=== PATIENT | male | born 1945 | race Caucasian/White ===

== ENCOUNTER 2017-12-15 12:23 | Day surgery (SDC) | payer MEDICARE, OTHER ==
[2017-12-14 10:43] VITALS: BMI 22.0
[2017-12-15] MEDS ORDERED: Lidocaine 1% PF 5 ML VIAL ONE (13:06)
[2017-12-15] MEDS ORDERED: PROPOFOL 200 MG/20 ML VIAL ONE (13:06)
[2017-12-15] MEDS ORDERED: Midazolam HCl 2 mg/2 ml Vial ONE (14:11)
--- NOTE | 2017-12-15 15:12 | OP ---
PREOPERATIVE DIAGNOSES: 1. Change in bowel function. 2. History of colon polyps. 3. Family history of colon cancer. DESCRIPTION OF PROCEDURE: After informed consent was obtained, the patient placed in the left latera l decubitus position. Anesthesia was administered per the Anesthesia Department. Forward-viewing en doscope was inserted into the rectum after perianal inspection and rectal exam were normal. This pas sed to the cecum with ease. The cecum, ileocecal valve, and appendiceal orifice were normal. The pr ep was excellent. The terminal ileum was normal. Random biopsies were taken from both the right and left colon to rule out microscopic colitis. A small polyp was noted in the ascending colon and margarito nasir with cold snare polypectomy. A small polyp was noted in the descending colon and removed with co ld snare polypectomy. Rectum was normal. Retroflexion in rectum was normal. ASSESSMENT: 1. Two small colon polyps -- status post cold snare polypectomy. 2. Otherwise, normal ileal colonoscopy. RECOMMENDATIONS: 1. Await histopathology. 2. Repeat colonoscopy based on histopathology. 3. Continue daily Citrucel. 4. Follow up in office in one month's time.
== END 2017-12-15 15:55 | disposition home or self-care (01) ==
LOC: SDC 12:23
PROVIDERS: ATTEND Internal Medicine Gastroenterology
PROC: 0DBK8ZX Excision of Ascending Colon, Via Natural or Artificial Opening Endoscopic, Diagnostic (ICD-10-PCS; principal; 2017-12-15)
PROC: 0DBM8ZZ Excision of Descending Colon, Via Natural or Artificial Opening Endoscopic (ICD-10-PCS; 2017-12-15)
DX: K63.5 Polyp of colon (principal); Z80.0 Family history of malignant neoplasm of digestive organs; Z88.0 Allergy status to penicillin; Z79.82 Long term (current) use of aspirin; Z79.899 Other long term (current) drug therapy
CPT/HCPCS: 88305; J2001; J2250; J2704

== ENCOUNTER 2019-02-02 19:39 | Observation (INO) | payer MEDICARE, OTHER ==
[2019-02-02] MEDS ORDERED: Ondansetron ODT 4 MG TAB SL PRN (21:40)
[2019-02-02] MEDS ORDERED: Ondansetron PF 4 MG/2 ML Vial IVP PRN (21:40)
[2019-02-02] MEDS ORDERED: Acetaminophen 325 MG TAB PO PRN (21:40)
[2019-02-02 21:41] VITALS: BMI 23.1
[2019-02-02] MEDS ORDERED: Atorvastatin Calcium 20 MG TAB PO SCH (23:15)
[2019-02-02] MEDS ORDERED: Tamsulosin HCl 0.4 MG CAP PO SCH (23:15)
[2019-02-02] MEDS ORDERED: Carvedilol 25 MG TAB PO SCH (23:15)
[2019-02-02 23:37] LABS: Troponin I 0.042 ng/mL (< 0.028)
[2019-02-03 03:28] LABS: Troponin I 0.026 ng/mL (< 0.028)
[2019-02-03 08:18] LABS: #Basophils 0.1 thou/uL (0.0-0.2); #Eosinphils 0.2 thou/uL (0.0-0.7); #Lymphocytes 2.2 thou/uL (1.20-3.40); #Monocytes 0.8 thou/uL (0.11-0.59); #Neutrophils 5.4 thou/uL (1.40-6.50); %Basophils 0.9 % (0.0-1.0); %Eosinophils 1.9 % (0.0-10.0); %Lymphocytes 25.7 % (21.0-51.0); %Monocytes 8.9 % (0.0-10.0); %Neutrophils 62.6 % (42.0-75.0); Hemoglobin 14.1 g/dL (14.0-18.0); Mean Corpuscular HGB CONC 32.7 g/dL (32.0-36.0); Mean Corpuscular Hemoglobin 31.3 pg (27.0-31.0); Mean Corpuscular Volume 95.9 fL (78.0-98.0); Mean Platelet Volume 6.8 fL (7.4-10.4); Platelet Count 208 thou/uL (130-400); White Blood Cell (WBC) Count 8.6 thou/uL (4.8-10.8)
[2019-02-03 08:42] LABS: Anion Gap 10 mmol/L (10-20); BUN (Urea Nitrogen) 17 mg/dL (8.4-25.7); Calc. Creatinine Clearance 91 mL/min (70-130); Calcium 9.1 mg/dL (7.8-10.44); Carbon Dioxide 25 mmol/L (23-31); Cardiac Risk 3.6 (Less than 4.5); Chloride 106 mmol/L (98-107); Cholesterol 150 mg/dl (< 200 Desired); Estimated GFR-MDRD 90; Glucose 88 mg/dL (83-110); HDL Cholesterol 42 mg/dL (>60 Neg Risk); LDL Cholesterol, Calculated 86 mg/dL; Magnesium 2.1 mg/dL (1.6-2.6); Potassium 3.9 mmol/L (3.5-5.1); Sodium 137 mmol/L (136-145); Triglycerides 110 mg/dL (Less than 150)
[2019-02-03] MEDS: Spironolactone 25 MG TAB PO SCH (09:43)
[2019-02-03] MEDS: Losartan 25 MG TAB PO SCH (09:44)
[2019-02-03] MEDS: Aspirin Chewable 81 MG TAB PO SCH (09:46)
[2019-02-03] MEDS: Ubidecarenone 50 MG CAP PO SCH (09:46)
[2019-02-03] MEDS: Carvedilol 25 MG TAB PO SCH (09:46)
[2019-02-03] MEDS ORDERED: Ondansetron ODT 4 MG TAB PO PRN (09:51)
[2019-02-03] MEDS ORDERED: Ondansetron PF 4 MG/2 ML Vial IVP PRN (09:51)
[2019-02-03] MEDS ORDERED: Acetaminophen 650 MG Suppository PR PRN (09:51)
[2019-02-03] MEDS ORDERED: Acetaminophen 325 MG TAB PO PRN (09:51)
--- NOTE | 2019-02-03 10:59 | HP ---
CHIEF COMPLAINT: Syncope. HISTORY OF PRESENT ILLNESS: Mr. Perez is a 73-year-old man, who presented to the emergency department at [facility] following a syncopal episode while shopping at [employer]. The patient states he suddenly felt lightheaded and fainted. He came to within seconds and states he injured the right side of his lip on to the stack of plastic baskets. He did end up falling on his back. He apparently underwent CT brain imaging at [facility], that was unremarkable. The patient had laboratory studies done, which were unremarkable. A BNP was normal at 56. An initial troponin was negative. He also underwent of his AICD and noted to have experienced an episode of V-tach. The patient states he just had it checked on and there had been no episodes, and per the patient, he had an additional 5 years remaining longevity. He states he had felt well throughout the day, but was more active than usual. He spent quite a bit of time working on his [employer] system outside around his home and after that went to work out at the gym. The patient states he is usually good about maintaining adequate hydration, but perhaps did not drink more to make up for the increased sweating and activity. He did eat as normal and had a light lunch. The patient had gone home, but prompted by his to go to the emergency department to have his pacemaker checked. On arrival to the emergency department here after being transferred from [facility], he underwent examination, which was unremarkable. He was referred for further workup of syncope. The patient denies having any recent fevers, chills or sweats. Denies having any nausea or vomiting. No abdominal pain or cramping. Denies experiencing any chest pain at any time before the episode or since then. Denies any shortness of breath. Reports having normal bowel movements and no urinary symptoms. No extremity weakness or numbness. No headaches. PAST MEDICAL HISTORY: 1. Cardiomyopathy. 2. Hypertension. 3. Coronary artery disease. 4. CHF. 5. Hyperlipidemia. 6. Osteoarthritis. PAST SURGICAL HISTORY: 1. Right total knee replacement. 2. AICD placement. SOCIAL HISTORY: The patient denies any tobacco use. He rarely drinks alcohol and denies any illicit drug use. ALLERGIES: PENICILLIN. CURRENT MEDICATIONS: 1. Aspirin. 2. Atorvastatin. 3. Carvedilol. 4. Citrucel. 5. Losartan. 6. Multivitamin. 7. Sildenafil. 8. Spironolactone. 9. Tamsulosin. 10. CoQ10. INVESTIGATIONS: As mentioned above in HPI. IMPRESSION AND PLAN: Mr. Perez is a 73-year-old man, who is being referred for management of the following. 1. Syncope. The patient has had his pacemaker defibrillator interrogated, which shows 2 episodes of ventricular tachycardia, unclear of what time. Appears to have had 2 episodes or greater than 176 beats per minute for greater than 4 beats. Consult has been placed to Cardiology. BNP is normal per labs done at [facility]. We will schedule an echo. The patient is scheduled to undergo an outpatient echo with Dr. Rizo in February. We will repeat laboratory studies today and include magnesium as well as TSH. Troponins unremarkable. 2. Hypertension. We will hold antihypertensives given low blood pressure of 94/ 56. The patient states he usually runs in the low 100s. We will continue carvedilol. Monitor blood pressure. We will check orthostatic BPs. 3. Hyperlipidemia. We will resume atorvastatin. 4. Gastrointestinal prophylaxis. 5. Deep venous thrombosis prophylaxis. The patient is ambulatory. On mechanical SCDs. 6. Code status, full. The patient's surrogate decision maker is his , Annie Perez. The patient's case will be discussed with Dr. Garcia for further recommendations. Job ID: [id number] MTDD
[2019-02-03] MEDS ORDERED: ISOVUE-370 76%-LOCM 1 ML ONE (11:53)
--- NOTE | 2019-02-03 11:59 | CT ---
CTA Angio Chest W WO Con 02/03/2019 10:56 AM Indication: Elevated d-dimer and chest pain Technique: Multiple CTA images were obtained of the thorax with IV contrast. 3D reformatted images were constructed from the raw data. Comparison: None Findings: Pulmonary arteries: No central or segmental pulmonary embolus is evident. Heart and Great Vessels: There are scattered vascular calcifications involving thoracic aorta and co ronary arteries. There is a dual lead AICD overlying the left chest wall. Lungs:There are scattered pulmonary nodules throughout both lungs many of which are below 4 mm in siz e. The largest within the right lower lobe measures 4.4 mm. There is subsegmental volume loss within both lower lobes Pleural space: Clear. Upper Abdomen: No acute abnormality. Osseous Structures: No acute osseous abnormality. There is scattered degenerative and osteoarthritic change present. Impression: 1. No central or segmental pulmonary was. 2. Nonspecific small pulmonary nodules within the right and left lung. As a conservative measure a fo llow-up CT examination in 6-8 weeks is recommended to document stability.
--- NOTE | 2019-02-03 18:54 | CON ---
DATE OF CONSULTATION: 02/03/2019 REASON FOR CONSULTATION: Syncope. HISTORY OF PRESENT ILLNESS: Mr. Perez is a very pleasant 73-year-old gentleman with previous history of nonischemic cardiomyopathy. He recently states he had a syncopal episode. He states he has been working in the yard, worked down, and may be a little dehydrated. He has no recollection of the event. No trauma present. PAST MEDICAL HISTORY: Ischemic cardiomyopathy, hypertension, hyperlipidemia, osteoarthritis, knee surgery, AICD placement. ALLERGIES: PENICILLIN. SOCIAL HISTORY: No current tobacco or alcohol use. MEDICATIONS: Include atorvastatin, aspirin, Citracal, losartan, multivitamin, sildenafil, spironolactone, tamsulosin. REVIEW OF SYSTEMS: A 10-point review of systems is reviewed as above, otherwise negative PHYSICAL EXAMINATION: VITAL SIGNS: Blood pressure 101/57, pulse 66, temperature is 97.5. GENERAL: Patient is a pleasant male who is in no acute distress. The patient appears their stated age. NEUROLOGIC: The patient is alert and oriented x3 with no focal neurologic deficits. HEENT: Sclerae without icterus. Mouth has moist mucous membranes with normal pallor. NECK: No JVD. Carotid upstroke brisk. No bruits bilaterally. LUNGS: Clear to auscultation with unlabored respirations. BACK: No scoliosis or kyphosis. CARDIAC: Regular rate and rhythm with normal S1 and S2. No S3 or S4 noted. No significant rubs, murmurs, thrills, or gallops noted throughout the precordium. PMI is not displaced. There is no parasternal heave. ABDOMEN: Soft, nontender, nondistended. No peritoneal signs present. No hepatosplenomegaly. No abnormal striae. EXTREMITIES: 2+ femoral and 2+ dorsalis pedis pulses. No cyanosis, clubbing, or edema. SKIN: No gross abnormalities. Interrogation of ICD-two episodes of SVT with heart rate in the 170s to 180s, longest episode 10 seconds. This occurred during his syncopal episode. PERTINENT LABORATORY DATA: Hemoglobin 14.1, creatinine 0.8. Troponin negative. IMPRESSION: 1. Syncope. 2. Supraventricular tachycardia. 3. Nonischemic cardiomyopathy. RECOMMENDATIONS: I do feel Mr. Perez's symptoms are likely related to episode of SVT in combination with dehydration. At this point, recommend digoxin loading to 1 mg. May consult with EP in a.m. to discuss further treatment options. He is already on high-dose beta alma therapy. This did not appear to be associated with ventricular tachycardia. Job ID: [id number]
[2019-02-03] MEDS: Digoxin 0.25 MG TAB PO SCH (18:55)
[2019-02-03] MEDS ORDERED: Tamsulosin HCl 0.4 MG CAP PO SCH (21:00)
[2019-02-03] MEDS ORDERED: Carvedilol 25 MG TAB PO SCH (21:00)
[2019-02-03] MEDS ORDERED: Atorvastatin Calcium 20 MG TAB PO SCH (21:00)
[2019-02-03] MEDS: Famotidine 20 MG TAB PO SCH (21:08)
[2019-02-04] MEDS: Digoxin 0.25 MG TAB PO SCH ×3 (00:26→13:35)
[2019-02-04 05:37] LABS: Anion Gap 11 mmol/L (10-20); BUN (Urea Nitrogen) 15 mg/dL (8.4-25.7); Calc. Creatinine Clearance 92 mL/min (70-130); Calcium 9.3 mg/dL (7.8-10.44); Carbon Dioxide 26 mmol/L (23-31); Chloride 106 mmol/L (98-107); Estimated GFR-MDRD Greater than 90; Glucose 80 mg/dL (83-110); Potassium 3.8 mmol/L (3.5-5.1); Sodium 139 mmol/L (136-145)
[2019-02-04 06:02] LABS: #Basophils 0.1 thou/uL (0.0-0.2); #Eosinphils 0.2 thou/uL (0.0-0.7); #Lymphocytes 3.2 thou/uL (1.20-3.40); #Monocytes 0.8 thou/uL (0.11-0.59); #Neutrophils 3.7 thou/uL (1.40-6.50); %Eosinophils 2.9 % (0.0-10.0); %Lymphocytes 40.2 % (21.0-51.0); %Monocytes 10.1 % (0.0-10.0); %Neutrophils 45.9 % (42.0-75.0); Elliptocytes SLIGHT = 2-5 cells (100X) (0-1/hpf); Hemoglobin 14.1 g/dL (14.0-18.0); Hypochromia SLIGHT = 6-15 cells (100X) (0-5/hpf); MDiff Complete? YES; Mean Corpuscular HGB CONC 37.7 g/dL (32.0-36.0); Mean Corpuscular Hemoglobin 35.6 pg (27.0-31.0); Mean Corpuscular Volume 94.5 fL (78.0-98.0); Mean Platelet Volume 6.7 fL (7.4-10.4); Platelet Count 208 thou/uL (130-400); Platelet Morphology Comment Appears Adequate; RBC Distribution Width 12.5 % (11.5-14.5); Red Blood Cell (RBC) Count 3.95 mill/uL (4.70-6.10); White Blood Cell (WBC) Count 8.1 thou/uL (4.8-10.8)
[2019-02-04] MEDS: Ubidecarenone 50 MG CAP PO SCH (08:40)
[2019-02-04] MEDS: Famotidine 20 MG TAB PO SCH (08:40)
[2019-02-04] MEDS: Aspirin Chewable 81 MG TAB PO SCH (08:40)
[2019-02-04] MEDS: Carvedilol 25 MG TAB PO SCH (08:41)
[2019-02-04] MEDS: Losartan 25 MG TAB PO SCH (08:43)
[2019-02-04] MEDS: Spironolactone 25 MG TAB PO SCH (08:43)
--- NOTE | 2019-02-04 09:19 | PDOC.PN ---
- Subjective Encounter Start Date: 02/04/19 Encounter Start Time: 09:18 Subjective: Patient feeling well and without complaints. Denies any chest pain. -: No sob. Denies lightheadedness. Tolerating food/liquids. No n/v. - Objective Resuscitation Status - Order Detail: 02/03/19 09:51 Resuscitation Status Routine Co-Sign Provider: Resuscitation Status: FULL: Full Resuscitation Vital Signs & Weight: Vital Signs (12 hours) Temp Pulse Resp BP BP Pulse Ox 02/04/19 07:30 97.5 F L 66 16 105/65 97 02/04/19 07:11 73 02/04/19 04:41 98.0 F 61 15 108/63 97 02/04/19 00:26 97.7 F 63 16 110/70 98 Weight Weight 167 lb 6.4 oz I&O: 02/03/19 02/04/19 02/05/19 06:59 06:59 06:59 Intake Total 480 1340 Output Total 1150 Balance 480 190 Result Diagrams: 02/04/19 04:40 02/04/19 04:40 Phys Exam - Physical Examination Constitutional: NAD HEENT: PERRLA, moist MMs, oral pharynx no lesions Neck: no nodes, no JVD, supple, full ROM Respiratory: no wheezing, no rales, no rhonchi, clear to auscultation bilateral Cardiovascular: RRR Gastrointestinal: soft, non-tender, no distention, positive bowel sounds Musculoskeletal: no edema, pulses present Neurological: non-focal, normal sensation, moves all 4 limbs Psychiatric: normal affect, A&O x 3 Skin: no rash, normal turgor Dx/Plan (1) Supraventricular tachycardia Code(s): I47.1 - SUPRAVENTRICULAR TACHYCARDIA Status: Acute (2) CAD (coronary artery disease), [place] coronary artery Code(s): I25.10 - ATHSCL HEART DISEASE OF [place] CORONARY ARTERY W/O ANG PCTRS Status: Chronic Qualifiers: Associated angina: without angina (3) Cardiomyopathy Code(s): I42.9 - CARDIOMYOPATHY, UNSPECIFIED Status: Chronic Comment: EF 40- 45%, compensated (4) Dyslipidemia Code(s): E78.5 - HYPERLIPIDEMIA, UNSPECIFIED Status: Chronic (5) Hypertension Code(s): I10 - ESSENTIAL (PRIMARY) HYPERTENSION Status: Chronic - Plan cont current plan of care Echo: 30-35% with findings suggesting diastolic dysfunction grade 2 -: Digoxin started per Dr. Haider, EP consult advised. -: Patients BP was low this am, 105/65, Losartan and Spirinolactone held, same -: happened yesterday AM, patient states his BP is always in that range before -: meds but does not recheck after meds. Dr. Haider notified. * .
[2019-02-04 12:47] VITALS: BP 106/64; TEMP 98.5
--- NOTE | 2019-02-04 15:54 | PRG ---
DATE OF SERVICE: SUBJECTIVE: Mr. Perez is doing well with no current complaints. No significant dysrhythmias noted. OBJECTIVE: GENERAL: Patient is a pleasant gentleman, who is in no acute distress. The patient appears his stated age. VITAL SIGNS: Blood pressure 106/64, pulse 61, temperature 98.5. NEUROLOGIC: The patient is alert and oriented x3 with no focal neurologic deficits. HEENT: Sclerae without icterus. Mouth has moist mucous membranes with normal pallor. NECK: No JVD. Carotid upstroke brisk. No bruits bilaterally. LUNGS: Clear to auscultation with unlabored respirations. BACK: No scoliosis or kyphosis. CARDIAC: Regular rate and rhythm with normal S1 and S2. No S3 or S4 noted. No significant rubs, murmurs, thrills, or gallops noted throughout the precordium. PMI is not displaced. There is no parasternal heave. ABDOMEN: Soft, nontender, nondistended. No peritoneal signs present. No hepatosplenomegaly. No abnormal striae. EXTREMITIES: 2+ femoral and 2+ dorsalis pedis pulses. No cyanosis, clubbing, or edema. SKIN: No gross abnormalities. PERTINENT LABORATORY DATA: Hemoglobin 14.1. BMP within normal limits. IMPRESSION: 1. Supraventricular tachycardia versus ventricular tachycardia. 2. Syncope. 3. Nonischemic cardiomyopathy. RECOMMENDATIONS: I discussed the case with Dr. Ahumada. I did send him images of the tracings. It is unknown whether the patient has had VT or SVT. He recommended beta-alma therapy and digoxin. He has been loaded up with digoxin and we will add low-dose digoxin 0.125 one p.o. q.a.m. Continue Coreg. Plan to follow up with EP in the next 2 to 3 weeks. No further recommendations. We will hold losartan and spironolactone due to marginal blood pressure in the low 100. Job ID: [id number]
== END 2019-02-04 15:57 | disposition home or self-care (01) ==
LOC: ERS 19:39 → 2SW 20:18
PROVIDERS: ADMIT Family Medicine; ATTEND Family Medicine
DX: R55 Syncope and collapse (principal); I11.0 Hypertensive heart disease with heart failure; I50.9 Heart failure, unspecified; I25.10 Atherosclerotic heart disease of native coronary artery without angina pectoris; E78.5 Hyperlipidemia, unspecified; M19.90 Unspecified osteoarthritis, unspecified site; Z88.0 Allergy status to penicillin; Z88.8 Allergy status to other drugs, medicaments and biological substances; Z79.82 Long term (current) use of aspirin; Z79.899 Other long term (current) drug therapy; Z95.0 Presence of cardiac pacemaker
CPT/HCPCS: 71275; 80048 ×2; 80061; 83735; 84443; 84484 ×3; 85025 ×2; 85379; 93306; 99285; G0378 ×2; 36415; Q9966